=== PATIENT | female | born 1950 | race Caucasian/White ===

== ENCOUNTER 2016-10-22 09:53 | Emergency (ER) | payer MEDICARE, OTHER ==
[2016-10-22 10:09] VITALS: BP 108/75
--- OUTSIDE RECORDS SUMMARY | 2016-10-22 10:27 | XMS REPORT | Continuity of Care Document ---
:1950 Author Organization [facility] ([facility]) Address [address] [place] [address] Phone [phone] Care Team Providers Name Role Phone Latricia Guerra Primary Care Provider [phone] Source Comments This disclosure is being made pursuant to the Care Everywhere program, applicable federal and state laws, and may not contain all informaitonavailable regarding this patient.[facility] ([facility]) Active Allergies and Adverse Reactions No Known Allergies Current Medications Prescription Sig. Disp. Refills Start Date End Date Status propranolol (INDERAL) 80 take 80 mg by mouth Active mg tablet daily. ibuprofen (MOTRIN) 800 take 800 mg by mouth Active mg tablet every 6 hours as needed. MULTIVITAMINS,THER take 1 Tab by mouth Active W-MINERALS daily. (MULTI-VITAMIN HP/MINERALS PO) ASPIRIN (ASPIR-81 PO) take 1 Tab by mouth Active daily. citalopram 10 mg tablet Take 10 mg by mouth Active daily. magnesium oxide 250 mg Take 250 mg by mouth Active tablet daily. fluocinoNIDE 0.05 % apply topically 2 Active topical cream times daily. calcipotriene (DOVONEX) apply topically Active 0.005 % topical cream daily. PSEUDOEPHEDRINE/ACETAMIN Take by mouth as Active OPHEN (SINUTAB MAX ST needed. 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 Chowdary, pathology done by Dr. Valiente ([facility]), report in media: "mild superficial perivascular lymphoplasmacellular inflammation. Mild interface inflammation is present. There is thickening of the collagen at the reticular dermis however eccrine coils are still invested in fat. There is no loss of adnexal structure and no chronic inflammation is present in the deep dermis. Comment: features, wile not entirely diagnostic, are compatible with morphea. NOTE: this is NOT systemic sclerosis. S/P bilateral breast implants 06/12/2013 Overview: 1981, believed to be silicone (but patient not able to confirm). Depression 06/12/2013 Overview: Well controlled with citalopram. Dyspnea 06/12/2013 Hypertension 09/22/2009 Uterine Cancer, past history 09/22/2009 Overview: 1995, surgically cured, no chemo or radiation. Thyroid Disorder, age 6 09/22/2009 Overview: Patient gained a lot of weight and was diagnosed with a thyroid problem, corrected with iodine drops. Osteopenia 09/22/2009 Overview: Per DEXA done 2006 Scoliosis 09/22/2009 Migraines 09/22/2009 Overview: Resolved in late Immunizations Name Dates Previously Given Next Due Influenza, quadrivalent PF 06/12/2013 Social History Tobacco Use Types Packs/Day Years Used Date Former Smoker Cigarettes 1 10 Quit: 09/22/1981 Smokeless Tobacco: Never Used Tobacco Cessation:Counseling Given: Yes Comments: Alcohol Use Drinks/Week oz/Week Comments Yes 7 Glasses of wine 7.0 Last Filed Vital Signs Vital Sign Reading Time Taken Blood Pressure 144/90 06/26/2013 2:27 PM DIRECTOR CONTENT MARKETING Pulse 84 06/26/2013 2:27 PM DIRECTOR [employer] Temperature 36.5 C (97.7 F) 06/26/2013 2:27 PM DIRECTOR [employer] MARK[employer]ING Respiratory Rate - - Height 1.62 m (5' 3.78") 06/26/2013 2:27 PM DIRECTOR CONTENT MARKETING Weight 89.2 kg (196 lb 10.4 oz) 06/26/2013 2:27 PM DIRECTOR CONTENT MARKETING Body Mass Index 33.99 06/26/2013 2:27 PM DIRECTOR CONTENT MARKETING Oxygen Saturation 97% 06/12/2013 1:57 PM CDT Plan of Care Health Maintenance Due Date Last Done Comments Hepatitis B Vaccine (1 of 3 - Primary Series) 1950 Tdap Vaccine 10/19/1962 Lipid Disorder Screening 10/19/1969 Td Vaccine 10/19/1969 Pneumococcal Vaccine (1 of 3 - PCV13) 10/19/1970 Cervical Cancer Screening 10/19/1981 Mammogram 1991 Colonoscopy 10/19/2001 Zoster Vaccine 2011 Influenza Vaccine: Seasonal (#1) 03/22/2016 06/12/2013 HCV Screening Completed 06/12/2013 Results from Last 3 Months Not on file
--- NOTE | 2016-10-22 11:00 | ERNOTE ---
Integumentary HPI - Narrative Date of Service: 10/22/16 - General Time Seen by Provider: 10/22/16 10:18 Source: patient Exam Limitations: no limitations - Immun/Allergies/Home Medications Immunizations: IMMUNIZATION HX Immunizations Up to Date No History of Influenza Vaccine No Hx Pneumococcal Vaccination No Allergies/Adverse Reactions: Allergies Allergy/AdvReac Type Severity Reaction Status Date / Time No Known Allergies Allergy Verified 10/22/16 10:09 Home Medications: HOME MEDICATIONS Albuterol Sulfate [Proair Hfa] 1 - 2 puff IH Q4H PRN 12/11/14 [Last Taken Unknown] Arginine HCl [l-Arginine] 1,000 mg PO BID 12/11/14 [Last Taken Unknown] Aspirin [Bryce Chewable] 81 mg PO DAILY 12/11/14 [Last Taken Unknown] Atenolol [Tenormin] 10 mg PO DAILY 12/11/14 [Last Taken Unknown] Fluticasone Propionate [Flovent Diskus] 50 mcg IH DAILY 12/11/14 [Last Taken Unknown] Fluticasone/Salmeterol [Advair 250-50 Diskus] 1 puff IH DAILY 12/11/14 [Last Taken Unknown] Ibuprofen [Motrin] 600 - 800 mg PO TID PRN 12/11/14 [Last Taken Unknown] Levothyroxine Sodium [Synthroid] 50 mcg PO DAILY 12/11/14 [Last Taken Unknown] Montelukast Sodium [Singulair] 10 mg PO DAILY 12/11/14 [Last Taken Unknown] Sulfamethoxazole/Trimethoprim [Bactrim] 1 tab PO BID 01/24/16 [Last Taken Unknown] Esomeprazole Magnesium [Nexium] 20 mg PO DAILY 10/22/16 [Last Taken Unknown] oxyCODONE HCL/ACETAMINOPHEN [Percocet 5 MG/325 MG] 1 tab PO Q4H PRN #20 tab 11/05 [Last Taken Unknown] - History of Present Illness Narrative: Pt. comes in with c/o L groin pain and swelling for two days that is open and leaking pus-like fluid. Pt. has had this problem in the past and the symptoms resolved with I and d and antibiotics but returned recently. Pt. states that symptoms are worse with this episode than withthe last and she has had fever and chills with this episode. Review of Systems - Review of Systems Constitutional: Present: no symptoms reported. Absent: recent illness, fever, chills, weakness, fatigue, malaise EYE: Present: no symptoms reported ENT: Present: no symptoms reported Respiratory: Present: no symptoms reported. Absent: shortness of breath, cough , wheezing Cardiology: Present: no symptoms reported. Absent: chest pain, palpitations, edema Gastrointestinal/Abdominal: Present: no symptoms reported. Absent: nausea, vomiting, diarrhea, abdominal pain Genitourinary: Present: no symptoms reported Musculoskeletal: Present: no symptoms reported. Absent: back pain, joint pain Skin: Present: lesions, change in color - redness L labia Neurological: Present: no symptoms reported. Absent: headache, dizziness/light- headedness, numbness, tingling Endocrine: Present: no symptoms reported Hematologic/Lymphatic: Present: no symptoms reported Psych: Present: no symptoms reported All Other Systems: All systems neg except as marked - Patient's Past Medical History Patient History - Medical: Hypothyroidism Patient History - Cardiac/Respiratory: No pertinent hx Patient History - Cancer: Cervical Patient History - Surgical Procedures: Colonoscopy, Hysterectomy, Other - Social History Living Situations: home Alcohol Use: occasionally Drug Use: none - Immunizations Immunizations Up to Date: No Hx Pneumococcal Vaccination: No History of Influenza Vaccine: No Physical Exam - Physical Exam General Appearance: Present: wd/wn, alert, no apparent distress Eye Exam: Normal inspection: bilateral, PERRL: bilateral, EOMI: bilateral Ears, Nose, Throat: Present: normal ENT inspection, normal pharynx Neck: Present: normal inspection, nontender. Absent: lymphadenopathy (R), lymphadenopathy (L) Respiratory: Present: no respiratory distress, normal breath sounds, no accessory muscle use, chest nontender, lungs clear. Absent: crackles, rales, rhonchi Cardiovascular/Chest: Present: regular rate, rhythm, no murmur, normal peripheral pulses Gastrointestinal/Abdominal: Present: nontender, nondistended, soft, no organomegaly Back Exam: Present: normal inspection, normal range of motion, no CVA tenderness , no vertebral tenderness Neurological Exam: Present: alert, oriented, normal mood/affect, no motor/ sensory deficits Skin Exam: Present: warm/dry, other - abscess near bartholins gland L inner labia with drainage of serosanguinous purulent material on dressing. also cellilitis 6cm surrounding abcess to the lateral. Absent: pallor, skin rash ED Progress - Date and Time Seen: Date and Time: 10/22/16 10:47 As this is a barthoins cyst I feel pt. OB/ EXCHANGE OPERATOR needs to surgically remove and possibly place catheter. Pt. without severely elevated WBC or bandemiaor blasts. I will give rocephin shot as pt. saw Dr Guerra yesterday and is on Bactrim and will be seeing her EXCHANGE OPERATOR on Tuesday for appointment so she also needs pain control. 10/22/16 11:47 - Vital Signs Patient's Vital Signs:: I have reviewed the patient's vital signs. Vital Signs: Vital Signs 10/22/16 10:06 Temperature 36.7 C Pulse Rate 73 Respiratory 12 Rate Blood Pressure 108/75 O2 Sat by Pulse 97 Oximetry - Progress/Reassessment Chief Complaint: Abscess Departure Clinical Impression: Cellulitis of labia majora, Bartholin cyst - Departure Disposition: Home self-care Condition: Good Instructions: Bartholin Cyst or Abscess, [id number] Additional Instructions: Please follow up with career guidance counselor on Tuesday as planned. continue current abx. Referrals: Latricia Guerra MD [Primary Care Provider] - Prescriptions: oxyCODONE HCL/ACETAMINOPHEN [Percocet 5 MG/325 MG] 1 tab PO Q4H PRN #20 tab PRN Reason: Pain
[2016-10-22 11:07] LABS: Hemoglobin 12.3 gm/dL (12.5-16.0); Mean Cell Volume 102.6 fl (78-100); Mean Corpuscular Hgb Conc 34.2 g/dl (32-36); Mean Platelet Volume 8.8 fl (6.0-9.5); Platelet Count 206 K/mm3 (150-450); Red Blood Count 3.51 M/mm3 (4.2-5.4); Red Cell Distribution Width 12.4 % (11.5-14.0); White Blood Count 11.8 K/mm3 (4.0-10.5)
[2016-10-22 11:15] LABS: Total Cells Counted 100
[2016-10-22 11:22] LABS: Albumin * 3.3 gm/dl (3.4-5.0); Anion Gap 15.4 mmol/L (6.8-13.8); Bilirubin, Total 1.4 mg/dL (0.0-1.1); Ca. Corrected For Albumin 9.2 mg/dL (8.4-10.2); Potassium 3.4 mmol/L (3.4-4.6); Total Protein 7.8 gm/dL (6.2-8.2)
[2016-10-22 11:26] LABS: Lymphocyte 8 % (20-51); Monocyte 7 % (0-9); Neutrophil 85 % (42-75)
[2016-10-22 11:27] LABS: Platelet Estimate Normal (NORMAL); RBC Morphology Normal (NORMAL)
== END 2016-10-22 12:13 | disposition home or self-care (01) ==
LOC: ER 09:53
DX: N76.2 Acute vulvitis (principal); N75.0 Cyst of Bartholin's gland; E03.9 Hypothyroidism, unspecified; Z85.41 Personal history of malignant neoplasm of cervix uteri

== ENCOUNTER 2017-01-15 11:25 | Emergency (ER) | payer MEDICARE, OTHER ==
[2017-01-15 11:32] VITALS: BP 147/93
--- NOTE | 2017-01-15 12:03 | ERNOTE ---
Medical Problem HPI - Narrative Date of Service: 01/15/17 - General Chief Complaint: General Assessment Time Seen by Provider: 01/15/17 11:32 Source: patient Exam Limitations: no limitations - Immun/Allergies/Home Medications Immunizations: IMMUNIZATION HX Immunizations Up to Date No History of Influenza Vaccine No Hx Pneumococcal Vaccination No Allergies/Adverse Reactions: Allergies No Known Allergies Allergy (Verified 01/15/17 11:32) Home Medications: HOME MEDICATIONS Albuterol Sulfate [Proair Hfa] 1 - 2 puff IH Q4H PRN 12/11/14 [Last Taken Unknown] Arginine HCl [l-Arginine] 1,000 mg PO BID 12/11/14 [Last Taken Unknown] Aspirin [Bryce Chewable] 81 mg PO DAILY 12/11/14 [Last Taken Unknown] Atenolol [Tenormin] 50 mg PO DAILY 12/11/14 [Last Taken Unknown] Fluticasone Propionate [Flovent Diskus] 50 mcg IH DAILY 12/11/14 [Last Taken Unknown] Ibuprofen [Motrin] 600 - 800 mg PO TID PRN 12/11/14 [Last Taken Unknown] Levothyroxine Sodium [Synthroid] 50 mcg PO DAILY 12/11/14 [Last Taken Unknown] Montelukast Sodium [Singulair] 10 mg PO DAILY 12/11/14 [Last Taken Unknown] Esomeprazole Magnesium [Nexium] 20 mg PO DAILY 10/22/16 [Last Taken Unknown] Alendronate Sodium [Fosamax] 70 mg PO DAILY 01/15/17 [Last Taken Unknown] Fluticasone/Salmeterol [Advair 500-50 Diskus] 1 puff IH BID 01/15/17 [Last Taken Unknown] Losartan/Hydrochlorothiazide [Hyzaar 100-25 Tablet] 1 each PO DAILY 01/15/17 [ Last Taken Unknown] Mupirocin [Bactroban] 1 appl TP BID #22 gm 01/15/17 [Last Taken Unknown] [place] Oil/[place]-3 Fatty Acids [Fish Oil] 3,350 mg PO DAILY 01/15/17 [Last Taken Unknown] Sulfamethoxazole/Trimethoprim [Bactrim Ds] 1 tab PO BID #28 tab 01/15/17 [Last Taken Unknown] - History of Present History Narrative: Pt. comes in with c/o lump on L labia. Pt. states that it is painful to touch and she noticed this today but has had one in this same area in the past. Pt. denies any fevers, SOB, CP, NVD, alleviating factors or aggravating factors. Review of Systems - Review of Systems Constitutional: Present: no symptoms reported. Absent: recent illness, fever, weakness, fatigue, malaise EYE: Present: no symptoms reported ENT: Present: no symptoms reported Respiratory: Present: no symptoms reported. Absent: shortness of breath, cough , wheezing Cardiology: Present: no symptoms reported. Absent: chest pain, palpitations, edema Gastrointestinal/Abdominal: Present: no symptoms reported. Absent: nausea, vomiting, diarrhea Genitourinary: Present: no symptoms reported Musculoskeletal: Present: no symptoms reported. Absent: back pain, joint pain Skin: Present: lumps - L labia All Other Systems: All systems neg except as marked - Patient's Past Medical History Patient History - Medical: Hypothyroidism, Other - bartholins cyst and labial abscess Patient History - Cardiac/Respiratory: No pertinent hx Patient History - Cancer: Cervical Patient History - Surgical Procedures: Colonoscopy, Hysterectomy, Other - Social History Living Situations: home Alcohol Use: occasionally Drug Use: none - Immunizations Immunizations Up to Date: No Hx Pneumococcal Vaccination: No History of Influenza Vaccine: No Physical Exam - Physical Exam General Appearance: Present: wd/wn, alert, no apparent distress Eye Exam: Normal inspection: bilateral, PERRL: bilateral, EOMI: bilateral Ears, Nose, Throat: Present: normal ENT inspection, normal pharynx Neck: Present: normal inspection, nontender. Absent: lymphadenopathy (R), lymphadenopathy (L) Respiratory: Present: no respiratory distress, normal breath sounds, no accessory muscle use, chest nontender, lungs clear Cardiovascular/Chest: Present: regular rate, rhythm, no murmur, normal peripheral pulses Gastrointestinal/Abdominal: Present: normal bowel sounds, nontender, nondistended, soft, no organomegaly Back Exam: Present: normal inspection Extremity Exam: Present: normal inspection Neurological Exam: Present: alert, oriented, normal mood/affect, no motor/ sensory deficits Skin Exam: Present: other - 0.4cm raised firm area L labia majora with no redness or ballotable area tender to palpation ED Progress - Date and Time Seen: Date and Time: 01/15/17 14:13 As pt. last abscess in this area grew staph aureus will treat for MRSA in hopes to prevent recurrance - Vital Signs Patient's Vital Signs:: I have reviewed the patient's vital signs. Vital Signs: Vital Signs 01/15/17 11:30 Temperature 36.7 C Pulse Rate 56 L Respiratory 12 Rate Blood Pressure 147/93 O2 Sat by Pulse 100 Oximetry - Progress/Reassessment Chief Complaint: General Assessment Departure - Departure Clinical Impression: Staph aureus infection, Abscess of labia Disposition: Home self-care Condition: Good Instructions: Abscess, [id number], Community-Associated MRSA, MRSA FAQs - GUTIERREZ Additional Instructions: Please follow up with Damage Prevention Coordinator if this does not improve in 2-3 days Referrals: Mery Hinton MD [Primary Care Provider] - Prescriptions: Mupirocin [Bactroban] 1 appl TP BID #22 gm Sulfamethoxazole/Trimethoprim [Bactrim Ds] 1 tab PO BID #28 tab
--- OUTSIDE RECORDS SUMMARY | 2017-01-15 12:13 | XMS REPORT | Continuity of Care Document ---
:1950 Author Organization [facility] ([facility]) Address [address] [place] [address] Phone [phone] Care Team Providers Name Role Phone Latricia Guerra Primary Care Provider [phone] Source Comments This disclosure is being made pursuant to the Care Everywhere program, applicable federal and state laws, and may not contain all informaitonavailable regarding this patient.[facility] ([facility]) Active Allergies and Adverse Reactions No Known [...] Dr. Chowdary, pathology done by Dr. Valiente ([facility]), report in media: "mild superficial perivascular lymphoplasmacellular [...] Taken Blood Pressure 144/90 06/26/2013 2:27 PM CODING CLERK Pulse 84 06/26/2013 2:27 PM CODING CLERK Temperature 36.5 C (97.7 F) 06/26/2013 2:27 PM CODING CLERK Respiratory Rate - - Height 1.62 m (5' 3.78") 06/26/2013 2:27 PM CODING CLERK Weight 89.2 kg (196 lb 10.4 oz) 06/26/2013 2:27 PM CODING CLERK Body Mass Index 33.99 06/26/2013 2:27 PM CODING CLERK Oxygen Saturation 97% 06/12/2013 1:57 PM CDT [...]
== END 2017-01-15 12:23 | disposition home or self-care (01) ==
LOC: ER 11:25
DX: A49.01 Methicillin susceptible Staphylococcus aureus infection, unspecified site (principal); N76.4 Abscess of vulva